=== PATIENT | male | born 1995 | race Caucasian/White ===

== ENCOUNTER 2024-01-19 14:25 | Inpatient (IN) | payer MEDICAID, OTHER ==
[2024-01-19] MEDS: LORazepam 0.5 MG TAB PO STA (15:47)
[2024-01-19] MEDS: LORazepam 2 MG/ML INJ IM STA (15:47)
[2024-01-19] MEDS: HALOPERIDOL LACTATE 5 MG/ML 1 ML VIAL IM STA (16:31)
--- NOTE | 2024-01-19 17:14 | ED ---
General Adult HPI <Marco Garsia - Last Filed: 01/20/24 11:52> - General Source: patient, family, RN notes reviewed, old records reviewed Mode of arrival: ambulatory Limitations: no limitations <Rishi Estrada - Last Filed: 01/21/24 21:12> - General Chief complaint: Psychiatric Symptoms Stated complaint: mental health Time Seen by Provider: 01/19/24 15:07 - History of Present Illness Initial comments: Patient is a 28-year-old male who presents emergency department for psychiatric evaluation. Was brought in by family members. Patient has been more agitated at home with suicidal ideations. Has self harming behavior at home as well. Just prior to arrival, cut himself with an unknown object at home. He is are present on his face, arms, neck, legs. He is 1 gaping 1. Not up-to-date on tetanus. Does endorse homicidal ideations as well as suicidal ideations with an attempt to hurt himself by cutting. Denies any hallucinations. States he has been compliant with medications. Has not seen a therapist or psychiatrist in quite some time. Presents for further evaluation at this time. (Rishi Estrada) - Related Data Home Medications Medication Instructions Recorded Confirmed OLANZapine [ZyPREXA] 2.5 mg PO HS 01/21/24 01/21/24 Allergies Allergy/AdvReac Type Severity Reaction Status Date / Time Penicillins Allergy Anaphylaxis Verified 01/19/24 14:39 Sulfa (Sulfonamide Allergy Anaphylaxis Verified 01/19/24 14:39 Antibiotics) Review of Systems ROS Other: All systems not noted in ROS Statement are negative. <Marco Garsia - Last Filed: 01/20/24 11:52> ROS Other: All systems not noted in ROS Statement are negative. <Rishi Estrada - Last Filed: 01/21/24 21:12> ROS Statement: Those systems with pertinent positive or pertinent negative responses have been documented in the HPI. Review of Systems: CONST: Denies fever EYES: Denies blurry vision ENT: Denies nasal congestion C/V: Denies Chest pain RESP: Denies shortness of breath GI: Denies abdominal pain : Denies dysuria SKIN: Endorses lacerations MSK: Denies joint pain. NEURO: Denies headache (Rishi Estrada) Past Medical History Past Medical History: No Reported History History of Any Multi-Drug Resistant Organisms: None Reported Past Surgical History: No Surgical Hx Reported Past Psychological History: Anxiety, Bipolar, Depression, Schizophrenia Smoking Status: Vaper Past Alcohol Use History: Rare Past Drug Use History: None Reported <Rishi Estrada - Last Filed: 01/21/24 21:12> General Exam Limitations: no limitations <Rishi Estrada - Last Filed: 01/21/24 21:12> - General Exam Comments Initial Comments: General: Appears in no acute distress. HEAD: Normal with no signs of head trauma. EYES: PERRLA, EOMI, conjunctiva normal, no discharge. ENT: Hearing grossly intact, normal oropharynx. RESPIRATORY: Clear breath sounds bilaterally. No wheezes, rales, or rhonchi. C/V: Regular rate and rhythm. S1 and S2 auscultated, no edema, peripheral pulses 2+ and intact throughout ABD: Abd is soft, nontender, nondistended EXT: Normal range of motion, no obvious deformity SKIN: Patient has extensive self-harm lacerations over bilateral anterior forearms, the neck, the face, as well as legs. Only 1 is significantly gaping in the right anterior distal forearm. No active bleeding at this time. NEURO: Alert and oriented x 4. (Rishi Estrada) Course Vital Signs 01/19/24 01/20/24 14:32 06:07 Temperature 98.3 F Pulse Rate 68 98 Respiratory 18 16 Rate Blood Pressure 126/65 130/85 O2 Sat by Pulse 97 98 Oximetry Medical Decision Making <Marco Garsia - Last Filed: 01/20/24 11:52> - Lab Data Result diagrams: 01/21/24 07:26 01/21/24 07:26 <Rishi Estrada - Last Filed: 01/21/24 21:12> - Medical Decision Making Patient evaluated by EPS and will be admitted to this institution for further psychiatric care. (Marco Garsia) Was pt. sent in by a medical professional or institution (, PA, CREDIT ADMINISTRATION MANAGER, urgent care, hospital, or usp...) When possible be specific @ -No Did you speak to anyone other than the patient for history (EMS, parent, family, police, friend...)? What history was obtained from this source @ -Spoke with patient's parents who petitioned the patient. Did you review nursing and triage notes (agree or disagree)? Why? @ -I reviewed and agree with nursing and triage notes Were old charts reviewed (outside hosp., previous admission, EMS record, old EKG, old radiological studies, urgent care reports/EKG's, usp records)? Report findings @ -No old charts were reviewed Differential Diagnosis (chest pain, altered mental status, abdominal pain women, abdominal pain men, vaginal bleeding, weakness, fever, dyspnea, syncope, headache, dizziness, GI bleed, back pain, seizure, CVA, palpatations, mental health, musculoskeletal)? @ -Differential Mental Health Depression, anxiety, bipolar, psychosis, schizophrenia, borderline personality, situational depression, adjustment disorder, behavioral disorder, brain tumor, malingering, substance abuse, encephalopathy, medication reaction, dementia, hypothyroidism, degenerative neurologic disorder, lupus.... This is not meant to be all-inclusive list EKG interpreted by me (3pts min.). @ -None done X-rays interpreted by me (1pt min.). @ -None done CT interpreted by me (1pt min.). @ -None done U/S interpreted by me (1pt. min.). @ -None done What testing was considered but not performed or refused? (CT, X-rays, U/S, lab s)? Why? @ -None What meds were considered but not given or refused? Why? @ -None Did you discuss the management of the patient with other professionals (professionals i.e. , PA, CREDIT ADMINISTRATION MANAGER, lab, RT, psych nurse, director social service, building repair maintenance supervisor, teacher, surveillance dual rate officer, case mgr)? Give summary @ -EPS notified of the consult. Was smoking cessation discussed for >3mins.? @ -No Was critical care preformed (if so, how long)? @ -No Were there social determinants of health that impacted care today? How? (Ho melessness, low income, unemployed, alcoholism, drug addiction, transportation, low edu. Level, literacy, decrease access to med. care, usp, rehab)? @ -No Was there de-escalation of care discussed even if they declined (Discuss DNR or withdrawal of care, Hospice)? DNR status @ -No What co-morbidities impacted this encounter? (DM, HTN, Smoking, COPD, CAD, Cancer, CVA, ARF, Chemo, Hep., AIDS, mental health diagnosis, sleep apnea, morbid obesity)? @ -None Was patient admitted / discharged? Hospital course, mention meds given and route, prescriptions, significant lab abnormalities, going to OR and other pertinent info. @ -Based on the patient's presentation and physical exam, patient presents for psychiatric evaluation. Suicide precautions ordered. Sitter ordered. Patient's arms and wounds were examined and I was assisted by midlevel provider for closure. Please see separate note. Patient given a dose of IM Ativan as well as Haldol due to agitation. BAT is 0. UDS is pending. At this time, patient is medically cleared for evaluation by psychiatry. Disposition pending psychiatric evaluation. EPS notified of the consult. Patient eventually admitted to inpatient psychiatry. Undiagnosed new problem with uncertain prognosis? @ -No Drug Therapy requiring intensive monitoring for toxicity (Heparin, Nitro, Insulin, Cardizem)? @ -No Were any procedures done? @ -No Diagnosis/symptom? @ -Suicidal ideation, self-harm behavior, lacerations, encounter for psychiatric evaluation Acute, or Chronic, or Acute on Chronic? @ -Acute Uncomplicated (without systemic symptoms) or Complicated (systemic symptoms)? @ -Complicated Side effects of treatment? @ -No Exacerbation, Progression, or Severe Exacerbation? @ -No Poses a threat to life or bodily function? How? (Chest pain, USA, [place], pneumonia, PE, COPD, DKA, ARF, appy, cholecystitis, CVA, Diverticulitis, Homicidal, Suicid al, threat to staff... and all critical care pts) @ -Yes (Rishi Estrada) - Lab Data Lab Results 01/19/24 01/20/24 Range/Units 17:10 12:04 Urine Opiates Screen Not Detected (NotDetected) Ur Oxycodone Screen Not Detected (NotDetected) Urine Methadone Screen Not Detected (NotDetected) Ur Barbiturates Screen Not Detected (NotDetected) U Tricyclic Antidepress Not Detected (NotDetected) Ur Phencyclidine Scrn Not Detected (NotDetected) Ur Amphetamines Screen Not Detected (NotDetected) U Methamphetamines Scrn Not Detected (NotDetected) U Benzodiazepines Scrn Not Detected (NotDetected) Urine Cocaine Screen Not Detected (NotDetected) U Marijuana (THC) Screen Detected H (NotDetected) SARS-CoV-2 (PCR) Not Detected (Not Detectd) Disposition Is patient prescribed a controlled substance at d/c from ED?: No Time of Disposition: 11:52 <Marco Garsia - Last Filed: 01/20/24 11:52> <Rishi Estrada - Last Filed: 01/21/24 21:12> Clinical Impression: Suicidal ideations, Self-harming behavior, Laceration, Encounter for psychiatr ic assessment, Acute psychosis Disposition: ADMITTED IP TO THIS HOSP Condition: Stable
[2024-01-19 17:58] LABS: Amphetamine Screen,Urine Not Detected (NotDetected); Barbiturate Screen,Urine Not Detected (NotDetected); Benzodiazepines Screen,Urine Not Detected (NotDetected); Cocaine Screen,Urine Not Detected (NotDetected); Methadone Screen, Urine Not Detected (NotDetected); Opiate Screen,Urine Not Detected (NotDetected); Oxycodone Screen, Urine Not Detected (NotDetected); Phencyclidine Screen,Urine Not Detected (NotDetected); Tricyclic Antidepressant,Urine Not Detected (NotDetected); Urn Cannabinoid Scrn Detected (NotDetected)
[2024-01-19] MEDS: TOPICAL SKIN ADHESIVE 1 EACH AMP TOPICAL ONE (18:45)
[2024-01-19] MEDS: DIPH,PERTUS(ACELL)TETVAC-LF 0.5 ML VIAL IM ONE (18:46)
[2024-01-20] MEDS: SERTRALINE 100 MG TAB PO SCH ×2 (09:23→09:29)
[2024-01-20] MEDS: OLANZapine 2.5 MG TAB PO SCH ×2 (09:30→21:11)
[2024-01-20] MEDS ORDERED: MAGNESIUM HYDROXIDE 2,400 MG/30 ML CUP PO PRN (13:52)
[2024-01-20] MEDS ORDERED: MAG HYDROX/AL HYDROX/SIMETH 355 ML BOTTLE PO PRN (13:52)
[2024-01-20] MEDS ORDERED: ACETAMINOPHEN TAB 325 MG TAB PO PRN (13:52)
[2024-01-20] MEDS ORDERED: HALOPERIDOL LACTATE 5 MG/ML 1 ML VIAL IM PRN (13:56)
[2024-01-20] MEDS ORDERED: LORazepam 2 MG/ML INJ IM PRN (13:56)
[2024-01-20 16:49] LABS: Appearance,Urine Clear (Clear); Bilirubin,Urine Negative (Negative); Blood,Urine Negative (Negative); Color,Urine Colorless; Glucose,Urine (UA) Negative (Negative); Ketones,Urine Negative (Negative); Leukocyte Esterase,Urine Negative (Negative); Nitrite,Urine Negative (Negative); PH, Urine 6.5 (5.0-8.0); Protein,Urine Negative (Negative); Specific Gravity,Urine 1.017 (1.001-1.035); Urobilinogen,Urine <2.0 mg/dL (<2.0)
[2024-01-20] MEDS: LORazepam 1 MG TAB PO PRN (21:11)
--- NOTE | 2024-01-21 00:28 | P.CONS ---
History of Present Illness - Reason for Consult Consult date: 01/21/24 - History of Present Illness Patient is a 28-year-old male with PMH of schizophrenia and bipolar disorder who had presented to the emergency room brought in by family members for psychiatric evaluation. The patient had reportedly been agitated at home and was expressing suicidal ideations. He had also been self harming via cutting himself on his forearms. The patient was admitted to the mental health unit where he was seen and evaluated. Patient reports that he has a longstanding history of depression and self-harm by cutting himself. He reports recreational marijuana use. He denied any physical complaints at the time of interview however. Denied experiencing chest discomfort, shortness of breath, fever, chills, cough, nausea, vomiting, abdominal pain, diarrhea. Review of systems: Pertinent positives and negatives as discussed in HPI, a complete review of systems was performed and all other systems are negative. Physical examination: General: non toxic, no distress, appears at stated age, normal weight Derm: Bilateral superficial lacerations on forearms, no unusual ecchymoses, warm, dry Head: atraumatic, normocephalic, symmetric Eyes: EOMI, no lid lag, anicteric sclera ENT: Nose and ears atraumatic, no thrush, no pharyngeal erythema Neck: trachea midline, supple Mouth: no lip lesion, mucus membranes moist Cardiovascular: S1S2 reg, no murmur, no edema Lungs: CTA bilateral, no rhonchi, no rales , no accessory muscle use Abdominal: soft, nontender to palpation, no guarding Ext: no gross muscle atrophy, no contractures, Neuro: No gross focal neuro deficits noted Psych: Alert, oriented, appropriate affect Assessment: Marijuana abuse Depression and suicidal ideation Imaging: None performed Data Review: Urine toxicology positive for marijuana Plan: Advised on the importance of cessation from marijuana use Defer management of depression and suicidal ideation to the primary psychiatry service Thank you for allowing us to participate in the care of this patient. We will follow peripherally. Do not hesitate to contact us with questions. Someone can be reached from the [facility] hospitalist group at all hours of the day at [phone]. Past Medical History Past Medical History: No Reported History History of Any Multi-Drug Resistant Organisms: None Reported Past Surgical History: No Surgical Hx Reported Past Psychological History: Anxiety, Bipolar, Depression, Schizophrenia Smoking Status: Vaper Past Alcohol Use History: Rare Past Drug Use History: Marijuana Medications and Allergies Allergies Allergy/AdvReac Type Severity Reaction Status Date / Time Penicillins Allergy Anaphylaxis Verified 01/19/24 14:39 Sulfa (Sulfonamide Allergy Anaphylaxis Verified 01/19/24 14:39 Antibiotics) Physical Exam Vitals: Vital Signs Temp Pulse Pulse Resp BP BP Pulse Ox 01/20/24 15:34 97.3 F L 52 L 18 131/82 98 01/20/24 06:07 98 16 130/85 98 Intake and Output 01/20/24 01/20/24 01/21/24 14:59 22:59 06:59 Other: Weight 75.3 kg
[2024-01-21 08:01] LABS: Basophils # (A) 0.1 k/uL (0-0.2); Basophils % (A) 1 %; Eosinophils # (A) 0.4 k/uL (0-0.7); Eosinophils % (A) 7 %; HCT 47.7 % (39.0-53.0); HGB 15.2 gm/dL (13.0-17.5); Lymphocytes # (A) 1.6 k/uL (1.0-4.8); Lymphocytes % (A) 28 %; MCH 29.3 pg (25.0-35.0); MCV 91.8 fL (80.0-100.0); Mean Platelet Volume 7.2; Monocytes # (A) 0.4 k/uL (0-1.0); Monocytes % (A) 6 %; Neutrophils # (A) 3.2 k/uL (1.3-7.7); Neutrophils % (A) 55 %; Platelet Count 206 k/uL (150-450); RBC 5.19 m/uL (4.30-5.90); RDW 12.9 % (11.5-15.5); WBC 5.8 k/uL (3.8-10.6)
[2024-01-21 08:41] LABS: ALT 25 U/L (4-49); AST 33 U/L (17-59); African American GFR (CKD) >90 (>60 ml/min/1.73 sqM); Albumin 4.6 g/dL (3.5-5.0); Alkaline Phosphatase 77 U/L (38-126); Anion Gap 10 mmol/L; Blood Urea Nitrogen 11 mg/dL (9-20); Calcium 9.5 mg/dL (8.4-10.2); Carbon Dioxide 27 mmol/L (22-30); Chloride 104 mmol/L (98-107); Glucose 94 mg/dL (74-99); Non-African American GFR(CKD) >90 (>60 ml/min/1.73 sqM); Potassium 4.2 mmol/L (3.5-5.1); Sodium 141 mmol/L (137-145); Total Bilirubin 0.8 mg/dL (0.2-1.3); Total Protein 7.3 g/dL (6.3-8.2)
[2024-01-21] MEDS: SERTRALINE 100 MG TAB PO SCH (08:50)
--- NOTE | 2024-01-21 12:39 | P.HP ---
Psychiatric H&P - . H&P Date: 01/21/24 History & Physical: Allergies Allergy/AdvReac Type Severity Reaction Status Date / Time Penicillins Allergy Anaphylaxis Verified 01/19/24 14:39 Sulfa (Sulfonamide Allergy Anaphylaxis Verified 01/19/24 14:39 Antibiotics) Vital Signs Temp 97.5 F L 01/21/24 06:42 Pulse 45 L 01/21/24 06:42 Resp 16 01/21/24 06:42 BP 140/77 01/21/24 06:42 Pulse Ox 98 01/20/24 15:34 FiO2 Intake & Output 01/20/24 01/21/24 01/21/24 18:59 06:59 18:59 Weight 75.3 kg Laboratory Last Values WBC 5.8 k/uL (3.8-10.6) 01/21/24 07:26 RBC 5.19 m/uL (4.30-5.90) 01/21/24 07:26 Hgb 15.2 gm/dL (13.0-17.5) 01/21/24 07:26 Hct 47.7 % (39.0-53.0) 01/21/24 07:26 MCV 91.8 fL (80.0-100.0) 01/21/24 07:26 MCH 29.3 pg (25.0-35.0) 01/21/24 07:26 MCHC 32.0 g/dL (31.0-37.0) 01/21/24 07:26 RDW 12.9 % (11.5-15.5) 01/21/24 07:26 Plt Count 206 k/uL (150-450) 01/21/24 07:26 MPV 7.2 01/21/24 07:26 Neutrophils % 55 % 01/21/24 07:26 Lymphocytes % 28 % 01/21/24 07:26 Monocytes % 6 % 01/21/24 07:26 Eosinophils % 7 % 01/21/24 07:26 Basophils % 1 % 01/21/24 07:26 Neutrophils # 3.2 k/uL (1.3-7.7) 01/21/24 07:26 Lymphocytes # 1.6 k/uL (1.0-4.8) 01/21/24 07:26 Monocytes # 0.4 k/uL (0-1.0) 01/21/24 07: Eosinophils # 0.4 k/uL (0-0.7) 01/21/24 07:26 Basophils # 0.1 k/uL (0-0.2) 01/21/24 07:26 Sodium 141 mmol/L (137-145) 01/21/24 07:26 Potassium 4.2 mmol/L (3.5-5.1) 01/21/24 07:26 Chloride 104 mmol/L (98-107) 01/21/24 07:26 Carbon Dioxide 27 mmol/L (22-30) 01/21/24 07:26 Anion Gap 10 mmol/L 01/21/24 07:26 BUN 11 mg/dL (9-20) 01/21/24 07: Creatinine 0.75 mg/dL (0.66-1.25) 01/21/24 07:26 Est GFR (CKD-EPI)AfAm >90 (>60 ml/min/1.73 sqM) 01/21/24 07:26 Est GFR (CKD-EPI)NonAf >90 (>60 ml/min/1.73 sqM) 01/21/24 07:26 Glucose 94 mg/dL (74-99) 01/21/24 07:26 Calcium 9.5 mg/dL (8.4-10.2) 01/21/24 07: Total Bilirubin 0.8 mg/dL (0.2-1.3) 01/21/24 07:26 AST 33 U/L (17-59) 01/21/24 07:26 ALT 25 U/L (4-49) 01/21/24 07:26 Alkaline Phosphatase 77 U/L (38-126) 01/21/24 07:26 Total Protein 7.3 g/dL (6.3-8.2) 01/21/24 07:26 Albumin 4.6 g/dL (3.5-5.0) 01/21/24 07:26 TSH 1.110 mIU/L (0.465-4.680) 01/21/24 07:26 Urine Color Colorless 01/20/24 16:22 Urine Appearance Clear (Clear) 01/20/24 16:22 Urine pH 6.5 (5.0-8.0) 01/20/24 16:22 Ur Specific Helen 1.017 (1.001-1.035) 01/20/24 16:22 Urine Protein Negative (Negative) 01/20/24 16:22 Urine Glucose (UA) Negative (Negative) 01/20/24 16:22 Urine Ketones Negative (Negative) 01/20/24 16:22 Urine Blood Negative (Negative) 01/20/24 16:22 Urine Nitrite Negative (Negative) 01/20/24 16:22 Urine Bilirubin Negative (Negative) 01/20/24 16:22 Urine Urobilinogen <2.0 mg/dL (<2.0) 01/20/24 16:22 Ur Leukocyte Esterase Negative (Negative) 01/20/24 16:22 Urine Opiates Screen Not Detected (NotDetected) 01/19/24 17:10 Ur Oxycodone Screen Not Detected (NotDetected) 01/19/24 17:10 Urine Methadone Screen Not Detected (NotDetected) 01/19/24 17:10 Ur Barbiturates Screen Not Detected (NotDetected) 01/19/24 17:10 U Tricyclic Antidepress Not Detected (NotDetected) 01/19/24 17:10 Ur Phencyclidine Scrn Not Detected (NotDetected) 01/19/24 17:10 Ur Amphetamines Screen Not Detected (NotDetected) 01/19/24 17:10 U Methamphetamines Scrn Not Detected (NotDetected) 01/19/24 17:10 U Benzodiazepines Scrn Not Detected (NotDetected) 01/19/24 17:10 Urine Cocaine Screen Not Detected (NotDetected) 01/19/24 17:10 U Marijuana (THC) Screen Detected (NotDetected) H 01/19/24 17:10 SARS-CoV-2 (PCR) Not Detected (Not Detectd) 01/20/24 12:04 01/21/24 09:22 IDENTIFYING DATA: Patient is a 28-year-old male. Lives in a house with his parents. Patient is single, and has no children. Currently unemployed. HPI: Patient presented to the hospital on 01/19. As per EPS note, "Pt was petitioned by mother, which states, "Marin has repeadtedly stated he wants to kill himself. Saying he leana blow his head off, beat his head on floor and wall. Has cut himself all over body...". During assessment pt was polite, calm, and cooperative with this RN. Pt has cuts on face, eyelids, neck, stomach, bilateral forearms, bilateral thighs, and bilateral feet. Only one cut on right forearm required steri strips, no sutures where placed. All other cuts are superficial. PT states that he took a cutting knife and cut with the intent to bleed. He does not want to life anymore. Admits to with plan to hang or shoot himself. He states that he would go purchase a weapon. He wants IMs to be "sedated so I can't feel and the days just pass". He feels he is a disappointment to his family and self. He states that he wanted to have someone plan to kill him as well. He recently lost his job because he threatened to kill a co-worker. Pt currently has no goals and not future oriented. He denies current HI. Denies delusions. He admits to he states that come and go of what looks like people he used to know. They do not speak to him but just "quick glimpses". 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 He states he feels he was being treated unfairly at work, and it made him angry. He states that he just "blows up" sometimes, and stressors include losing his job, and he was not asking for help. Patient has multiple superficial cuts all over his arms/neck/face. Parents noticed these cuts, and brought him into the hospital. He states he has mood swings, depression, and anxiety. Patient claims that by the cuts, he was wanting to kill himself. States he sleeps well, and his appetite is good. Patient denies any suicidal or homicidal ideations intent or plan. At this time patient denies any auditory or visual hallucinations. However, stated that he would sometimes hear his name being called at work, but no one was around. Patient denies any flight of ideas racing thoughts and increased in goal directed behavior. Patient denies using drugs, kaylynn alatorre, his UDS was positive for marijuana. Nurses and social workers have observed patient responding to internal stimuli, grabbing things in the air, when there is nothing there. PAST PSYCHIATRIC HISTORY: denies. However, states he used to take XANAX. Currently tried taking Zoloft, prescribed by PCP. Tried to hang self in 2018. PMH:As per ER note ALLERGIES: as per EMR CHEMICAL DEPENDENCY HISTORY: as per HPI FAMILY PSYCHIATRIC/SUBSTANCE USE HISTORY: denies SOCIAL HISTORY: Patient was born and raised in [place] [facility] [place] [address], High school graduate. Lives in a house with his parents, currently unemployed. No children. Single. 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 Has had several jobs in the past. Denies legal problems. MENTAL STATUS EXAM: General Appearance: Patient appears to be older than stated age, is alert, directable, and attempts to cooperate. Patient appears to have adequate hygiene and grooming. Superficial cuts all over his arms/neck/face. Patient has side patten, and dressed in street clothes. Behavior: Patient is seated without any agitated behavior. Poor eye contact, fidgety Speech: Patient's speech is fluent and nonpressured. Monotone Mood/Affect: Patient reports their mood is depressed, affect is congruent and constricted. Suicidality/Homicidality: Patient denies having any homicidal ideation intent or plan. Denies any suicidal ideations intent or plan Perceptions: Patient denies any visual hallucinations and denies any auditory hallucinations Though content/process: There is no evidence of any delusional thought content and thought process concrete. Memory and concentration: AOX3, grossly intact for the purposes of this session. Can spell "WORLD" backwards Judgment and insight: poor, impulsive STRENGTHS/WEAKNESSES: strength is that patient is resilient. Weakness is that patient has poor judgment and is impulsive INTELLECT: average IMPRESSIONS: psychosis, unspecified cannabis use disorder PLAN: -Patient is admitted under voluntary status to MHU for stabilization of psychiatric symptoms and safety. Patient has signed adult voluntary form and medication consent and is placed in patient's chart. -Medications : Invega 3mg PO qhs for psychosis, Zoloft 150mg po daily for mood/anxiety -Ativan and Haldol PRN for agitation/aggression -Patient was informed of the risks, benefits and side effects of the medication and patient verbally consented to taking the medications -Internal Medicine consult to perform medical evaluation and physical. -NRT - nonsmoker -SW on board for discharge planning. Encourage patient to participate in groups to work on coping skills.
[2024-01-21] MEDS: PALIPERIDONE 3 MG TAB.ER.24 PO SCH (20:38)
[2024-01-21] MEDS: haloperidoL 5 MG TAB PO PRN (22:06)
[2024-01-22] MEDS: NICOTINE GUM (POLACRILEX) 2 MG GUM BUCCAL PRN (13:44)
--- NOTE | 2024-01-22 13:54 | P.PN ---
Progress Note - Text Progress Note Date: 01/22/24 Interval History: Patient was seen wandering the hallways and was directable and agreeable to bo villareal with grant writer in the office. Patient is apologetic for his behavior yesterday. Stated he had an angry outburst. Claims that he feels better today, however, he is hearing voices, telling him to do things that he shouldn't be doing. Patient states he is feeling SI, however, he is not going to do anything to hurt himself at this time. Patient is going to groups, and trying to work on coping skills. He stated that he is sleeping well at night, and that his appetite is normal. At this time patient denies any suicidal or homicidal ideations, intent or plan. Patient denies any auditory, visual hallucinations and denies any paranoia or delusions. Patient denies any side effects from the medications and has been compliant with meds. MENTAL STATUS EXAM: General Appearance: Patient appears to be older than stated age, is alert, directable, and attempts to cooperate. Patient appears to have adequate hygiene and grooming. Superficial cuts all over his arms/neck/face. Patient has side patten, and dressed in street clothes. Behavior: Patient is seated without any agitated behavior. Poor eye contact, apologetic, improving mildly Speech: Patient's speech is fluent and nonpressured. Monotone, improving mildly Mood/Affect: Patient reports their mood is depressed, affect is congruent and constricted. Suicidality/Homicidality: Patient denies having any homicidal ideation intent or plan. Denies any suicidal ideations intent or plan Perceptions: Patient denies any visual hallucinations and endorses auditory hallucinations Though content/process: There is no evidence of any delusional thought content and thought process concrete. Memory and concentration: AOX3, grossly intact for the purposes of this session. Judgment and insight: poor, impulsive IMPRESSIONS: psychosis, unspecified cannabis use disorder PLAN: -Patient is admitted under voluntary status to MHU for stabilization of psychiatric symptoms and safety. -Medications : increase Invega 6mg PO qhs for psychosis, Zoloft 150mg po daily for mood/anxiety -Ativan and Haldol PRN for agitation/aggression -SW on board for discharge planning. Encourage patient to participate in groups to work on coping skills.
[2024-01-22] MEDS: PALIPERIDONE 6 MG TAB.ER.24 PO SCH (20:59)
--- NOTE | 2024-01-23 08:41 | P.PN ---
Progress Note - Text Progress Note Date: 01/23/24 Interval History: Patient was seen wandering the hallways and was directable and agreeable to bo villareal with report writer in the office. Patient states that he is ok today, and that his mood and anxiety are "pretty good" Patient is going to groups, and trying to work on coping skills. He stated that he is sleeping well at night, and that his appetite is normal. Patient claims that he has been feeling more restless and pacing the hallways more, attributing it to Invega. At this time patient denies any suicidal or homicidal ideations, intent or plan. Patient endorses auditory hallucinations, claims they say "How are you going to act today" and "How are you going to do this and that today", denies visual hallucinations and denies any paranoia or delusions. Student Development Specialist spoke with patient about changing his medication to Geodon, patient agreeable. Will order EKG prior to beginning. MENTAL STATUS EXAM: General Appearance: Patient appears to be older than stated age, is alert, directable, and attempts to cooperate. Patient appears to have adequate hygiene and grooming. Superficial cuts all over his arms/neck/face. Patient has side patten, and dressed in street clothes. Behavior: Patient is seated without any agitated behavior. Poor eye contact, apologetic, improving mildly Speech: Patient's speech is fluent and nonpressured. Monotone, improving mildly Mood/Affect: Patient reports their mood is "ok" affect is congruent and constricted. Suicidality/Homicidality: Patient denies having any homicidal ideation intent or plan. Denies any suicidal ideations intent or plan Perceptions: Patient denies any visual hallucinations and endorses auditory hallucinations Though content/process: There is no evidence of any delusional thought content and thought process concrete. Memory and concentration: AOX3, grossly intact for the purposes of this session. Judgment and insight: poor, impulsive, improving mildly IMPRESSIONS: psychosis, unspecified cannabis use disorder PLAN: -Patient is admitted under voluntary status to [facility] for stabilization of psychiatric symptoms and safety. -Medications : d/c Invega due to restlessness/akithesia, add Geodon 20mg BID for psychosis, Zoloft 150mg po daily for mood/anxiety -Perform EKG today prior to starting Geodon -Ativan and Haldol PRN for agitation/aggression -SW on board for discharge planning. Encourage patient to participate in groups to work on coping skills.
[2024-01-23] MEDS: ZIPRASIDONE 20 MG CAP PO SCH (20:35)
--- NOTE | 2024-01-24 20:48 | P.PN ---
Subjective Progress Note Date: 01/24/24 Patient Name: Marin Fink Date of : 89 Patient Status: Inpatient Attending Provider: Pablo Joaquin Date: 01/24/24 07:02 Initialization Date: 01/23/24 07:02 Progress Note - Text Progress Note Date: 01/24/24 Interval History: The patient was seen chart was reviewed in case discussed with the nursing staff patient reports that he is in the hospital because he tried to cut himself on both of his arms he said that he was angry at his cutting and boning supervisor recently fired him he reports that he was fired because he became agitated and was aggressive and emotionally labile towards them he states that he was living with his family before but is now currently live in a half-way although he states that this was initiated after he behaved aggressively but then reported that he was placed in the hospital before and is placed in a half-way Gen. patient remains uncertain and appears to meet the criteria for [place] average IQ MENTAL STATUS EXAM: General Appearance: Patient appears to be older than stated age, is alert, directable, and attempts to cooperate. Patient appears to have adequate hygiene and grooming. Superficial cuts all over his arms/neck/face. Patient has side patten, and dressed in street clothes. Behavior: Patient is seated without any agitated behavior. Poor eye contact, apologetic, improving mildly Speech: Patient's speech is fluent and nonpressured. Monotone, improving mildly Mood/Affect: Patient reports their mood is "ok" affect is congruent and c onstricted. Suicidality/Homicidality: Patient denies having any homicidal ideation intent or plan. Denies any suicidal ideations intent or plan Perceptions: Patient denies any visual hallucinations and endorses auditory hallucinations Though content/process: There is no evidence of any delusional thought content and thought process concrete. Memory and concentration: AOX3, grossly intact for the purposes of this session. Judgment and insight: poor, impulsive, improving mildly IMPRESSIONS: psychosis, unspecified cannabis use disorder PLAN: Agree with Dr. Schaefer's treatment plan -Patient is admitted under voluntary status to [facility] for stabilization of psychiatric symptoms and safety. -Medications : d/c Invega due to restlessness/akithesia, add Geodon 20mg BID for psychosis, Zoloft 150mg po daily for mood/anxiety -Perform EKG today prior to starting Geodon -Ativan and Haldol PRN for agitation/aggression -SW on board for discharge planning. Encourage patient to participate in groups to work on coping skills. Dorian Stokes MD Objective - Vital Signs Vital signs: Vital Signs Temp 98.1 F 01/24/24 06:00 Pulse 85 01/24/24 06:00 Resp 16 01/24/24 06:00 BP 142/82 01/24/24 06:00 Pulse Ox 99 01/24/24 06:00 FiO2 - Labs CBC & Chem 7: 01/21/24 07:26 01/21/24 07:26
--- NOTE | 2024-01-25 11:01 | P.PN ---
Progress Note - Text Progress Note Date: 01/25/24 Interval History: Patient was seen in his room and was directable and agreeable to speak with wr iter at the bedside. Patient states that he is all right today, and that his mood and anxiety are "pretty good" Patient is going to groups, and trying to work on coping skills. He stated that he is sleeping well at night, and that his appetite is normal. Patient states that the restless feeling he was having is improved, due to the change in medication. At this time patient denies any suicidal or homicidal ideations, intent or plan. Patient is denying auditory hallucinations today, states he hasn't heard them since Sunday, denies visual hallucinations and denies any paranoia or delusions. Patient is compliant with medications, and states he is not having side effects from them. MENTAL STATUS EXAM: General Appearance: Patient appears to be older than stated age, is alert, directable, and attempts to cooperate. Patient appears to have adequate hygiene and grooming. Superficial cuts all over his arms/neck/face. Patient has side patten, and dressed in street clothes. Behavior: Patient is seated without any agitated behavior. improving mildly Speech: Patient's speech is fluent and nonpressured. Monotone, improving mildly Mood/Affect: Patient reports their mood is "all right" affect is congruent and constricted. Suicidality/Homicidality: Patient denies having any homicidal ideation intent or plan. Denies any suicidal ideations intent or plan Perceptions: Patient denies any visual hallucinations and endorses auditory hallucinations Though content/process: There is no evidence of any delusional thought content and thought process concrete. Memory and concentration: AOX3, grossly intact for the purposes of this session. Judgment and insight: poor, improving mildly IMPRESSIONS: psychosis, unspecified cannabis use disorder PLAN: -Patient is admitted under voluntary status to [facility] for stabilization of psychiatric symptoms and safety. -Medications : Geodon 20mg BID for psychosis, maybe increase over the weekend if needed for psychotic symptoms, increase Zoloft 200mg po daily for mood/anxiety, starting tomorrow -Ballroom Dancer reviewed EKG -Ativan and Haldol PRN for agitation/aggression -SW on board for discharge planning. Encourage patient to participate in groups to work on coping skills. Possible discharge early next week if patient continues to improve
[2024-01-26] MEDS: SERTRALINE 100 MG TAB PO SCH (08:30)
--- NOTE | 2024-01-26 12:44 | P.PN ---
Progress Note - Text Progress Note Date: 01/26/24 Interval History: Patient was seen in his room and was directable and agreeable to speak with wr iter at the bedside. He is calm and pleasant and states that he is been doing "good ". he is noted to be reading a Bible and states that his mother brought it for him during visiting hours. Patient is odd in his mannerisms but is able to convey thoughts relatively linearly. He denies auditory hallucinations although he hesitates prior to answering the question. He reports sleeping and eating we ll. He reports that his cuts are healing well and denies concerns. discussed cannabis use and its deleterious effects on mental health. Did motivational interviewing and patient states that he uses cannabis to become more creative and to expand his mind. However, described to him the risks of cannabis use, including worsening psychosis. He denies suicidal ideation and homicidal ideation. He denies visual hallucinations and denies any paranoia or delusions. Patient is compliant with medications, and states he is not having side effects from them. MENTAL STATUS EXAM: General Appearance: Patient appears to be older than stated age, is alert, directable, and attempts to cooperate. Patient appears to have adequate hygiene and grooming. Superficial cuts all over his arms/neck/face. Patient has side patten, and dressed in street clothes. Behavior: Patient is seated without any agitated behavior. improving mildly Speech: Patient's speech is fluent and nonpressured. Monotone, improving mildly Mood/Affect: Patient reports their mood is "good" affect is smiling Suicidality/Homicidality: Patient denies having any homicidal ideation intent or plan. Denies any suicidal ideation intent or plan Perceptions: Patient denies any visual hallucinations and endorses auditory hallucinations Though content/process: There is no evidence of any delusional thought content and thought process concrete. Memory and concentration: AOX3, grossly intact for the purposes of this session. Judgment and insight: poor, improving mildly IMPRESSIONS: psychosis, unspecified cannabis use disorder PLAN: -Patient is admitted under voluntary status to [facility] for stabilization of psychiatric symptoms and safety. -Medications : Geodon 20mg BID with food for psychosis, maybe increase over the weekend if needed for psychotic symptoms, Zoloft 200mg po daily for mood/anxiety -Discussed substance use and encourage sobriety -Ativan and Haldol PRN for agitation/aggression -SW on board for discharge planning. Encourage patient to participate in groups to work on coping skills. Possible discharge early next week if patient continues to improve
--- NOTE | 2024-01-27 10:45 | P.PN ---
Progress Note - Text Progress Note Date: 01/27/24 Interval History: Patient reports her speaking to himself prior to entering the room. When asked about this, patient said he was reading the Bible although the book was closed. He superficially says he is doing "good". However, patient appears to be responding to internal stimuli. He endorses auditory hallucinations telling him "to be happy "and "if I did something wrong, to apologize ". He reports sleeping fairly well and having good appetite. He reports tolerating the medications well and does not appear to have any tremors or restlessness. He was agreeable with increasing Geodon today. He denies suicidal ideation and homicidal ideation. He denies visual hallucinations and denies any paranoia or delusions. Patient is compliant with medications, and states he is not having side effects from them. Vital Signs Temp 97.8 F 01/25/24 07:48 Pulse 68 01/26/24 06:55 Resp 18 01/26/24 06:55 BP 136/82 01/26/24 06:55 Pulse Ox 97 01/25/24 07:48 FiO2 MENTAL STATUS EXAM: General Appearance: Patient appears to be older than stated age, is alert, di rectable, and attempts to cooperate. Patient appears to have adequate hygiene and grooming. Superficial cuts all over his arms/neck/face. Patient has side patten, and dressed in street clothes. No tremors Behavior: Patient is seated without any agitated behavior. improving mildly Speech: Patient's speech is fluent and nonpressured. Monotone, improving mildly Mood/Affect: Patient reports their mood is "good" affect is smiling Suicidality/Homicidality: Patient denies having any homicidal ideation intent or plan. Denies any suicidal ideation intent or plan Perceptions: Patient denies any visual hallucinations and endorses auditory hallucinations Though content/process: There is no evidence of any delusional thought content and thought process concrete. Memory and concentration: AOX3, grossly intact for the purposes of this session. Judgment and insight: poor, improving mildly IMPRESSIONS: psychosis, unspecified cannabis use disorder PLAN: -Patient is admitted under voluntary status to [facility] for stabilization of psychiatric symptoms and safety. -Medications : increase Geodon to 40mg BID with food for psychosis, Zoloft 200mg po daily for mood/anxiety -QTc was 362 (baseline) -Discussed cannabis use, discussed deleterious effects on mental health and encourage sobriety -Ativan and Haldol PRN for agitation/aggression -SW on board for discharge planning. Encourage patient to participate in groups to work on coping skills. Possible discharge early next week if patient continues to improve
[2024-01-27] MEDS: ZIPRASIDONE 40 MG CAP PO SCH (20:51)
--- NOTE | 2024-01-28 11:07 | P.PN ---
Progress Note - Text Progress Note Date: 01/28/24 Interval History: Patient was seen in his room and was directable and agreeable to speak with wr iter at the bedside. Patient states that he is ok today, and that his mood and anxiety are "good" Patient is going to some groups. He stated that he is sleeping well at night, and that his appetite is normal. Nursing staff reports patient responding to internal stimuli, talking to the cameras on the unit, and having conversations with himself. Patient is focused on discharge, wanting to leave today. very concrete, demanding. poor insight/judgment Automotive Engineering Technician explained to patient that his medications needed adjusted a little more before that can happen. At this time patient denies any suicidal or homicidal ideations, intent or plan. Patient is denying auditory hallucinations today, denies visual hallucinations and denies any paranoia or delusions. Patient is compliant with medications, and states he is not having side effects from them. MENTAL STATUS EXAM: General Appearance: Patient appears to be older than stated age, is alert, directable, and attempts to cooperate. Patient appears to have adequate hygiene and grooming. Superficial cuts all over his arms/neck/face. Patient has side patten, and dressed in street clothes. Behavior: Patient is seated without any agitated behavior. improving mildly Speech: Patient's speech is fluent and nonpressured. Monotone, improving mildly Mood/Affect: Patient reports their mood is "good" affect is congruent and constricted. Suicidality/Homicidality: Patient denies having any homicidal ideation intent or plan. Denies any suicidal ideations intent or plan Perceptions: Patient denies any visual hallucinations and denies auditory hallucinations Though content/process: There is no evidence of any delusional thought content and thought process concrete. Memory and concentration: AOX3, grossly intact for the purposes of this session. Judgment and insight: poor, improving mildly IMPRESSIONS: psychosis, unspecified cannabis use disorder PLAN: -Patient is admitted under voluntary status to [facility] for stabilization of psychiatric symptoms and safety. -Medications : increase Geodon 60mg BID for psychosis, starting tomorrow, Zoloft 200mg po daily for mood/anxiety. Ordered EKG -Ativan and Haldol PRN for agitation/aggression -SW on board for discharge planning. Encourage patient to participate in groups to work on coping skills. Possible discharge later this week if patient improves psychiatrically.
[2024-01-28] MEDS: ZIPRASIDONE 40 MG CAP PO ONE (20:29)
[2024-01-29] MEDS: ZIPRASIDONE 60 MG CAP PO SCH (08:28)
--- NOTE | 2024-01-29 11:07 | P.PN ---
Progress Note - Text Progress Note Date: 01/29/24 Interval History: Patient was seen in his room and was directable and agreeable to speak with wr iter at the bedside. Patient claims that he is doing ok today. When account underwriter asked about him hitting his head on his room door yesterday, patient stated he was sad that he did not get discharged yesterday, and he wanted to go to dinner with his parents. Patient received as needed medications after he impulsively hit his head against the door. Nursing staff is still observing patient doing bizarre things, like showing his bible to the cameras on the unit, and having conversations with himself. These to be fairly superficial with account underwriter. Patient denies these behaviors. Chiller Tender spoke with patient about coping skills, and safe discharge. At this time patient denies any suicidal or homicidal ideations, intent or plan. Patient is denying auditory hallucinations today, denies visual hallucinations and denies any paranoia or delusions. Patient is compliant with medications, and states he is not having side effects from them. MENTAL STATUS EXAM: General Appearance: Patient appears to be older than stated age, is alert, directable, and attempts to cooperate. Patient appears to have adequate hygiene and grooming. Superficial cuts all over his arms/neck/face. Patient has side patten, and dressed in street clothes. Behavior: Patient is seated without any agitated behavior. improving mildly Speech: Patient's speech is fluent and nonpressured. Monotone, improving mildly Mood/Affect: Patient reports their mood is "good" affect is congruent and constricted. Suicidality/Homicidality: Patient denies having any homicidal ideation intent or plan. Denies any suicidal ideations intent or plan Perceptions: Patient denies any visual hallucinations and denies auditory hallucinations Though content/process: There is no evidence of any delusional thought content and thought process concrete. Memory and concentration: AOX3, grossly intact for the purposes of this session. Judgment and insight: poor, improving mildly IMPRESSIONS: psychosis, unspecified, likely schizophrenia versus schizoaffective disorder cannabis use disorder PLAN: -Patient is admitted under voluntary status to [facility] for stabilization of psychiatric symptoms and safety. -Medications : discontinue Geodon , Zoloft 200mg po daily for mood/anxiety. add Prolixin 2.5mg bid for psychosis -EKG reviewed -Ativan and Haldol PRN for agitation/aggression -SW on board for discharge planning. Encourage patient to participate in groups to work on coping skills. Possible discharge later this week if patient improves psychiatrically.
[2024-01-30] MEDS: BENZTROPINE MESYLATE 0.5 MG TAB PO SCH (11:01)
--- NOTE | 2024-01-30 11:08 | P.PN ---
Progress Note - Text Progress Note Date: 01/30/24 Interval History: Patient was seen in his room and was directable and agreeable to speak with wr iter at the bedside. Patient claims that he is doing ok today. He continues to be fairly superficial with scenario writer. He states he was having "leg convulsions" last night, and increased anxiety, so he needed to take PRN's. Patient seemed guarded and vague when trying to explain his mood. Patient continues to be agitated at nighttime and in the evening as well. He was fairly superficial, continues to have fairly limited insight and judgment. Glove Pairer spoke with patient about dialing in the medications, so he can have a safe discharge back to home. Patient agreeable. Per nursing notes, patient observed being loud in his room around 1am, responding to internal stimuli. At this time patient denies any suicidal or homicidal ideations, intent or plan. Patient is denying auditory hallucinations today, denies visual hallucinations and denies any paranoia or delusions. Patient is compliant with medications. MENTAL STATUS EXAM: General Appearance: Patient appears to be older than stated age, is alert, directable, and attempts to cooperate. Patient appears to have adequate hygiene and grooming. Superficial cuts all over his arms/neck/face. Patient has side patten, and dressed in street clothes. Behavior: Patient is seated without any agitated behavior. improving mildly Speech: Patient's speech is fluent and nonpressured. Monotone, improving mildly Mood/Affect: Patient reports their mood is "good" affect is congruent and constricted. Suicidality/Homicidality: Patient denies having any homicidal ideation intent or plan. Denies any suicidal ideations intent or plan Perceptions: Patient denies any visual hallucinations and denies auditory hallucinations Though content/process: There is no evidence of any delusional thought content and thought process concrete. Memory and concentration: AOX3, grossly intact for the purposes of this session. Judgment and insight: Chronically poor, improving mildly IMPRESSIONS: psychosis, unspecified, likely schizophrenia versus schizoaffective disorder cannabis use disorder Extrapyramidal symptoms PLAN: -Patient is admitted under voluntary status to [facility] for stabilization of psychiatric symptoms and safety. -Medications : Zoloft 200mg po daily for mood/anxiety. increase Prolixin 5mg qhs for psychosis add Prolixin 2mg daily, Cogentin 0.5 bid for EPS symptoms, add trazodone 50mg qhs for sleep -Ativan and Haldol PRN for agitation/aggression -SW on board for discharge planning. Encourage patient to participate in groups to work on coping skills. Possible discharge later this week if patient improves psychiatrically.
[2024-01-30] MEDS: traZODone HCL 50 MG TAB PO SCH (20:31)
--- NOTE | 2024-01-31 11:24 | P.PN ---
Progress Note - Text Progress Note Date: 01/31/24 Interval History: Patient was seen in his room and was directable and agreeable to speak with wr iter at the bedside. Patient claims that he is doing ok today. He continues to be superficial with technical proposal writer. He states the "leg convulsions" he was having yesterday have subsided. Patient denies any anxiety and problems with his mood, however, he repeatedly requires PRN's for outbursts he has on the unit. Patient continues to display times of agitation and responding to internal stimuli talking to himself. He continues to be seen wandering the halls of the hallways with a Bible. Patient seemed guarded and vague when trying to explain his mood. Patient states he slept well last night, as per nursing notes, he only slept a few hours, then was up, and talking loudly to himself, appearing to be responding to internal stimuli, and requiring PRN's. Continues to have limited insight and judgment. Patient is not showering, technical proposal writer encouraged him to do so. Patient states he talks to his mom on the phone. Per nursing notes, mother called the unit stating that the patient was upset because he wants to be discharged. At this time patient denies any suicidal or homicidal ideations, intent or plan. Patient is denying auditory hallucinations today, denies visual hallucinations and denies any paranoia or delusions. Patient is compliant with medications. MENTAL STATUS EXAM: General Appearance: Patient appears to be older than stated age, is alert, directable, and attempts to cooperate. Patient appears to have poor hygiene and grooming. Superficial cuts all over his arms/neck/face. Patient has side patten, and dressed in street clothes. Behavior: Patient is seated without any agitated behavior. improving mildly Superficial. Evasive Speech: Patient's speech is fluent and nonpressured. Monotone, improving mildly Mood/Affect: Patient reports their mood is "ok" affect is congruent and con stricted. Suicidality/Homicidality: Patient denies having any homicidal ideation intent or plan. Denies any suicidal ideations intent or plan Perceptions: Patient denies any visual hallucinations and denies auditory hallucinations Though content/process: There is no evidence of any delusional thought content and thought process concrete. Memory and concentration: AOX3, grossly intact for the purposes of this session. Judgment and insight: Chronically poor IMPRESSIONS: psychosis, unspecified, likely schizophrenia versus schizoaffective disorder cannabis use disorder Extrapyramidal symptoms PLAN: -Patient is admitted under voluntary status to MHU for stabilization of psychiatric symptoms and safety. -Medications : Zoloft 200mg po daily for mood/anxiety. increase Prolixin 7.5mg qhs for psychosis, Prolixin 2mg daily, Cogentin 0.5 bid for EPS symptoms, increase trazodone 100mg qhs for sleep, add depakote 250mg bid for mood stabilization/agitation -Ativan and Haldol PRN for agitation/aggression -SW on board for discharge planning. Encourage patient to participate in groups to work on coping skills. Will await for patient to improve psychiatrically before discharge home.
[2024-01-31] MEDS: DIVALPROEX ER 250 MG TAB.ER.24H PO SCH (11:46)
[2024-01-31] MEDS: NICOTINE 14MG/24HR PATCH TRANSDERM SCH (11:48)
[2024-01-31] MEDS: traZODone HCL 100 MG TAB PO SCH (21:39)
--- NOTE | 2024-02-01 10:19 | P.PN ---
Progress Note - Text Progress Note Date: 02/01/24 Interval History: Patient was seen in his room and was directable and agreeable to speak with wr iter at the bedside. Patient claims that he is doing ok today. Patient did admit to having quite a bit of anxiety, due to wanting to be discharged. Patient is requiring multiple PRN's due to increased anxiety, and behaviors. Patient is superficial with entry writer, as well as vague. Patient states he sleeps at night, as per nursing notes, patient sleeps very little, and is up in the lounge at night. When approached, patient states that he hears the TV talking to him, however, the TV was not on at the time. It was reported by Activity Therapist, that patient stated he is having thoughts of self harm, and that he does have new scratches on his face. [employer]maker [employer] reiterated to the patient that his mental health is important, and we can not safely discharge him at this time. Patient offered no complaints. At this time patient denies any suicidal or homicidal ideations, intent or plan. Patient is endorsing auditory hallucinations today, denies visual hallucinations and denies any paranoia or delusions. Patient is compliant with medications. MENTAL STATUS EXAM: General Appearance: Patient appears to be older than stated age, is alert, directable, and attempts to cooperate. Patient appears to have poor hygiene and grooming. Superficial cuts all over his arms/neck/face. Patient has side patten, and dressed in street clothes. Behavior: Patient is seated without any agitated behavior. Superficial. Evasive, improving mildly Speech: Patient's speech is fluent and nonpressured. Monotone Mood/Affect: Patient reports their mood is "ok" affect is congruent and constricted. Suicidality/Homicidality: Patient denies having any homicidal ideation intent or plan. Denies any suicidal ideations intent or plan Perceptions: Patient denies any visual hallucinations and is endorsing auditory hallucinations. Focused on discharge. Though content/process: There is evidence of any delusional thought content and thought process concrete. Patient feels the TV is talking to him. Memory and concentration: AOX3, grossly intact for the purposes of this session. Judgment and insight: Chronically poor IMPRESSIONS: psychosis, unspecified, likely schizophrenia versus schizoaffective disorder cannabis use disorder Extrapyramidal symptoms PLAN: -Patient is admitted under voluntary status to MHU for stabilization of psychiatric symptoms and safety. -Medications : Zoloft 200mg po daily for mood/anxiety. discontinue Prolixin add Zyprexa 5mg BID for psychosis, discontinue Cogentin , decrease trazodone 50mg qhs PRN for sleep, increase depakote 750mg qhs for mood stabilization/agitation -Ativan and Haldol PRN for agitation/aggression -SW on board for discharge planning. Encourage patient to participate in groups to work on coping skills. Will await for patient to improve psychiatrically before discharge home.
[2024-02-01 11:32] VITALS: BMI 22.8
[2024-02-01] MEDS: OLANZapine 5 MG TAB PO SCH (12:03)
[2024-02-01] MEDS: DIVALPROEX ER 250 MG TAB.ER.24H PO SCH (20:36)
--- NOTE | 2024-02-02 11:42 | P.PN ---
Progress Note - Text Progress Note Date: 02/02/24 Interval history: Patient was seen wandering the hallways and was directable and agreeable to s peak with automotive service writer. Patient was also noted to be going to group today. He claims that he slept about 6 hours last night. He did have minor scratches over his face and states that he does not know how that got there. He claims that he feels the medications have been helping a bit better, he appears to be less irritable today, did not have to take extra as needed medication. He states that he is doing a bit better overall, denies any depression or anxiety at this time. Continues to focus on discharge, mildly improving insight and judgment. At this time patient denies any suicidal or homicidal ideations intent or plan. Denies any Auditory or visual hallucinations. Patient denies any side effects from the medications and has been compliant with meds. Mental status exam: General Appearance: Patient appears to be thin, stated age is alert, directable, and cooperative. Behavior: No agitated behavior. Patient is calm and directable more cooperative today. Speech: Patient's speech is fluent and nonpressured. Monotone Mood/Affect: Mood is improving mildly, affect is congruent and constricted. Suicidality/Homicidality: Patient denies having any suicidal or homicidal ideation intent or plan. Perceptions: Patient denies any auditory or visual hallucinations. Though content/process: There is no evidence of any delusional thought content and thought process is linear and goal-directed. M[place], guarded Memory and concentration: AOX3, grossly intact for the purposes of this session Judgment and insight: Chronically poor, improving mildly Assessment/Plan: Continue with current diagnosis. Patient continues to meet criteria for inpatient psychiatric admission for symptom stabilization and safety. Patient will be maintained on current psychotropic medication regimen, with the exception of increasing Zyprexa to 10 mg nightly +5 mg daily for mood stabilization/psychosis. Increase Depakote to 1000 mg nightly for mood stabilization. Monitor for medication compliance and for any psychotropic medication side effects. Will continue to monitor ongoing response to treatment. Encouraged participation in milieu.
[2024-02-02] MEDS: DIVALPROEX ER 500 MG TAB.ER.24H PO SCH (20:38)
[2024-02-02] MEDS: OLANZapine 10 MG TAB PO SCH (20:38)
[2024-02-03] MEDS: OLANZapine 5 MG TAB PO SCH ×2 (07:21→20:46)
--- NOTE | 2024-02-03 10:43 | P.PN ---
Progress Note - Text Progress Note Date: 02/03/24 Interval history: Patient was seen wandering the hallways and was directable and agreeable to s peak with proposal writer.. He appears to be more directable today during conversation. He was seen plugging his ears while he was wandering the hallway and claims that "the voices were telling me to not disturb your conversation". He claims that he is doing better today overall, denies any depression or anxiety. Less irritable, not having any episodes of agitation. Continues to be fairly concrete, insight and judgment mildly improving however remains chronically poor. He claims that he slept about 6 hours last night. At this time patient denies any suicidal or homicidal ideations intent or plan. Denies any Auditory or visual hallucinations. Patient denies any side effects from the medications and has been compliant with meds. Mental status exam: General Appearance: Patient appears to be thin, stated age is alert, directable, and attempts to be cooperative. Behavior: No agitated behavior. Patient is calm and directable more cooperative today. Speech: Patient's speech is fluent and nonpressured. Monotone Mood/Affect: Mood is improving mildly, affect is congruent and brighter affect today. Suicidality/Homicidality: Patient denies having any suicidal or homicidal ideation intent or plan. Perceptions: Patient denies any auditory or visual hallucinations. Though content/process: There is no evidence of any delusional thought content and thought process is linear and goal-directed. [place], guarded, improving mildly Memory and concentration: AOX3, grossly intact for the purposes of this session Judgment and insight: Chronically poor, improving mildly Assessment/Plan: Continue with current diagnosis. Patient continues to meet criteria for inpatient psychiatric admission for symptom stabilization and safety. Patient will be maintained on current psychotropic medication regimen, with the exception of increasing Zyprexa to 15 mg nightly +5 mg daily for mood stabilization/psychosis. Depakote 1000 mg nightly for mood stabilization. Monitor for medication compliance and for any psychotropic medication side effects. Will continue to monitor ongoing response to treatment. Encouraged participation in milieu. hopeful for discharge sun vs if patient continues to improve.
--- NOTE | 2024-02-04 12:29 | P.PN ---
Progress Note - Text Progress Note Date: 02/04/24 Interval History: [place] [facility] [place] direct[place] and agreeable to speak with ghost writer. Patient was reading out loud his Bible in the [facility] and did not want to leave the [facility]. Patient claims that he is doing ok today. Patient was calmly seated reading the bible. Patient stated that his mom came and visited over the weekend. Patient offered no complaints. Patient is still observed by nursing staff responding to internal stimuli. Will have social work reach out to his mother, to come up with a discharge plan. Patient reports a good appetite, and states he is sleeping well. He is to be fairly concrete, continues to have very limited insight and judgment. He has been taking his medications not reporting any problems. At this time patient denies any suicidal or homicidal ideations, intent or plan. Patient is denying auditory hallucinations today, denies visual hallucinations and denies any paranoia or delusions. Patient is compliant with medications. MENTAL STATUS EXAM: General Appearance: Patient appears to be older than stated age, is alert, directable, and attempts to cooperate. Patient appears to have improving hygiene and grooming. healed cuts all over his arms/neck/face. Patient has side patten, and dressed in street clothes. Behavior: Patient is seated without any agitated behavior. Superficial. Evasive, improving mildly Speech: Patient's speech is fluent and nonpressured. Monotone improving mildly Mood/Affect: Patient reports their mood is "ok" affect is congruent and constricted. Suicidality/Homicidality: Patient denies having any homicidal ideation intent or plan. Denies any suicidal ideations intent or plan Perceptions: Patient denies any visual hallucinations and is denying auditory hallucinations. Though content/process: There is evidence of any delusional thought content and thought process concrete. Observed by nursing staff responding to internal stimuli. Superficial/vague Memory and concentration: AOX3, grossly intact for the purposes of this session. Judgment and insight: Chronically poor IMPRESSIONS: psychosis, unspecified, likely schizophrenia versus schizoaffective disorder cannabis use disorder Extrapyramidal symptoms PLAN: -Patient is admitted under voluntary status to MHU for stabilization of psychiat norman symptoms and safety. -Medications : Zoloft 200mg po daily for mood/anxiety. discontinue Zyprexa, trazodone 50mg qhs PRN for sleep, depakote 1000mg qhs for mood stabilization/agitation Add Haldol 5mg BID for psychosis -Ativan and Haldol PRN for agitation/aggression -SW on board for discharge planning. Encourage patient to participate in groups to work on coping skills. Will await for patient to improve psychiatrically before discharge home.
[2024-02-04] MEDS: haloperidoL 5 MG TAB PO SCH (14:10)
--- NOTE | 2024-02-05 11:43 | P.PN ---
Progress Note - Text Progress Note Date: 02/05/24 Interval History: Patient was seen in the l activity room today, working on a puzzle. He was ag reeable to speak to marketing writer today. He appears to have a mildly improving affect today. Denies any complaints. States that he likes taking the haloperidol better than the previous medications. He claims that he is trying to go to more groups and participate as best as he can. He continues to be mildly religiously preoccupied. He is not observed to be responding to internal stimuli today. Claims that he slept about 5 hours last night. Claims to be eating fairly. He has been taking his medications not reporting any problems. We spoke about transitioning patient onto long-acting injection and he states that he is okay with that. At this time patient denies any suicidal or homicidal ideations, intent or plan. Patient is denying auditory hallucinations today, denies visual hallucinations and denies any paranoia or delusions. Patient is compliant with medications. MENTAL STATUS EXAM: General Appearance: Patient appears to be older than stated age, is alert, directable, and attempts to cooperate. Patient appears to have improving hygiene and grooming. healed cuts all over his arms/neck/face. Patient has side patten, and dressed in street clothes. Behavior: Patient is seated without any agitated behavior. Superficial. improving mildly Speech: Patient's speech is fluent and nonpressured. improving mildly Mood/Affect: Patient reports their mood is "all right" affect is congruent and constricted. Improving mildly Suicidality/Homicidality: Patient denies having any homicidal ideation intent or plan. Denies any suicidal ideations intent or plan Perceptions: Patient denies any visual hallucinations and is denying auditory hallucinations. Though content/process: There is evidence of any delusional thought content and thought process concrete. Memory and concentration: AOX3, grossly intact for the purposes of this session. Judgment and insight: Chronically poor, improving mildly IMPRESSIONS: Schizophrenia cannabis use disorder Extrapyramidal symptoms PLAN: -Patient is admitted under voluntary status to MHU for stabilization of psychiatric symptoms and safety. -Medications : Zoloft 200mg po daily for mood/anxiety, trazodone 50mg qhs PRN for sleep, depakote 1000mg qhs for mood stabilization/agitation, increase Haldol 5mg TID for psychosis, plan will be to transition patient onto long-acting injection to help ensure compliance. -Ativan and Haldol PRN for agitation/aggression -SW on board for discharge planning. Encourage patient to participate in groups to work on coping skills. Will await for patient to improve psychiatrically before discharge home. Patient is agreeable to be transitioned onto long-acting injection.
[2024-02-05] MEDS: BENZTROPINE MESYLATE 1 MG TAB PO SCH (21:14)
--- NOTE | 2024-02-06 11:30 | P.PN ---
Progress Note - Text Progress Note Date: 02/06/24 Interval History: Patient was seen today again and he was working on a puzzle alone in the [employer] room. He was agreeable to speak to proposal lead writer today. Patient claims that he felt agitated and irritable yesterday at nighttime. Claims that he was "missing home". States that he is not having any significant complaints at this time. He did request to have Ensure added to his meals. He again has been noted by some staff to be responding to internal stimuli at times in the hallways. He is not observed to be responding to internal stimuli today at this moment. Claims that he slept about 5 hours last night. Claims to be eating fairly. Not endorsing any issues with his medications. We spoke about transitioning patient onto long-acting injection and he states that he is okay with that. At this time patient denies any suicidal or homicidal ideations, intent or plan. Patient is denying auditory hallucinations today, denies visual hallucinations and denies any paranoia or delusions. Patient is compliant with medications. MENTAL STATUS EXAM: General Appearance: Patient appears to be older than stated age, is alert, directable, and attempts to cooperate. Patient appears to have improving hygiene and grooming. healed cuts all over his arms/neck/face. Patient has side patten, and dressed in street clothes. Behavior: Patient is seated without any agitated behavior. improving mildly Speech: Patient's speech is fluent and nonpressured. improving mildly Mood/Affect: Patient reports their mood is "ok" affect is congruent and constricted. Improving mildly Suicidality/Homicidality: Patient denies having any homicidal ideation intent or plan. Denies any suicidal ideations intent or plan Perceptions: Patient denies any visual hallucinations and is denying auditory hallucinations. Though content/process: There is evidence of any delusional thought content and thought process concrete. Improving mildly Memory and concentration: AOX3, grossly intact for the purposes of this session. Judgment and insight: Chronically poor, improving mildly IMPRESSIONS: Schizophrenia cannabis use disorder Extrapyramidal symptoms PLAN: -Patient is admitted under voluntary status to MHU for stabilization of psychiatric symptoms and safety. -Medications : Zoloft 200mg po daily for mood/anxiety, trazodone 50mg qhs PRN for sleep, depakote 1000mg qhs for mood stabilization/agitation, increase Haldol 5mg TID for psychosis, plan will be to transition patient onto long-acting injection to help ensure compliance. -Ativan and Haldol PRN for agitation/aggression -SW on board for discharge planning. Encourage patient to participate in groups to work on coping skills. Will await for patient to improve psychiatrically before discharge home. Patient is agreeable to be transitioned onto long-acting injection. likely discharge early next week once patient is transitioned onto RINCON and psychotic sx improving.
[2024-02-06] MEDS: haloperidoL 5 MG TAB PO SCH (16:15)
[2024-02-06] MEDS: traZODone HCL 50 MG TAB PO PRN (20:40)
--- NOTE | 2024-02-07 08:02 | P.PN ---
Progress Note - Text Progress Note Date: 02/07/24 Interval History: Patient was seen today in his room and was agreeable to speak to remote mortgage underwriter today. Patient claims that he is doing fairly well, denying any side effects at this time. He states that he slept fairly last night, he did need a dose of Ativan yesterday due to anxiety. He claims that he is tolerating medications fairly well. His thought process seems to be improving, he is not responding to internal stimuli at this time. Claims that he is eating well, trying to go to some groups, was requesting to have glasses to help him read. We spoke about transitioning patient onto long-acting injection and he states that he is okay with that. At this time patient denies any suicidal or homicidal ideations, intent or plan. Patient is denying auditory hallucinations today, denies visual hallucinations and denies any paranoia or delusions. Patient is compliant with medications. MENTAL STATUS EXAM: General Appearance: Patient appears to be older than stated age, is alert, directable, and attempts to cooperate. Patient appears to have improving hygiene and grooming. healed cuts all over his arms/neck/face. Patient has side patten, and dressed in street clothes. Behavior: Patient is seated without any agitated behavior. improving mildly Speech: Patient's speech is fluent and nonpressured. improving mildly Mood/Affect: Patient reports their mood is "fine" affect is congruent and constricted. Improving mildly Suicidality/Homicidality: Patient denies having any homicidal ideation intent or plan. Denies any suicidal ideations intent or plan Perceptions: Patient denies any visual hallucinations and is denying auditory hallucinations. Though content/process: There is evidence of any delusional thought content and thought process concrete. Improving mildly Memory and concentration: AOX3, grossly intact for the purposes of this session. Judgment and insight: Chronically poor, improving mildly IMPRESSIONS: Schizophrenia cannabis use disorder Extrapyramidal symptoms PLAN: -Patient is admitted under voluntary status to MHU for stabilization of psychiatric symptoms and safety. -Medications : Zoloft 200mg po daily for mood/anxiety, trazodone 50mg qhs PRN for sleep, depakote 1000mg qhs for mood stabilization/agitation, Haldol 5mg TID for psychosis, plan will be to transition patient onto long-acting injection to help ensure compliance. Please assess to give patient Haldol D RINCON either tomorrow or the weekend and began to titrate off Haldol po in preparation of discharge early next week. -Ativan and Haldol PRN for agitation/aggression -SW on board for discharge planning. Encourage patient to participate in groups to work on coping skills. Will await for patient to improve psychiatrically before discharge home. Patient is agreeable to be transitioned onto long-acting injection. likely discharge early next week once patient is transitioned onto [place] I and psychotic sx improving.
--- NOTE | 2024-02-08 18:28 | P.PN ---
Progress Note - Text Progress Note Date: 02/08/24 Interval history: Patient was seen wandering the hallways and was directable and agreeable to speak with medical writer. He is calm and attempts to cooperate. He states his mood is "5/10". He reports fair sleep and good appetite. He spends his day drawing and writing. His social interactions are somewhat odd and have made a peer feel uncomfortable. He read a female peer's journal that she accidentally left unattended. He then wrote her a few notes that were meant to be encouraging but made the peer feel uncomfortable. This was discussed with nurse today and patient was educated to not write notes to the patient and he understood. At this time patient denies any suicidal or homicidal ideation, intent or plan. Denies any auditory or visual hallucinations. Patient denies any side effects from the medications and has been compliant with meds. We discussed the Haldol decanoate injection and he agrees. Mental status exam: General Appearance: Patient appears to be stated age, facial hair, fair hygiene and grooming Behavior: No agitated behavior. Patient is calm and directable. Odd at times. Speech: Patient's speech is fluent and non-pressured. Mood/Affect: Mood is improving mildly, affect is congruent and constricted. Suicidality/Homicidality: Patient denies having any suicidal or homicidal ideation intent or plan. Perceptions: Patient denies any auditory or visual hallucinations. Though content/process: There is no evidence of any delusional thought content and thought process is linear and goal-directed. Memory and concentration: AOX3, grossly intact for the purposes of this session Judgment and insight: Improving mildly Assessment/Plan: Continue with current diagnosis. Patient continues to meet criteria for inpatient psychiatric admission for symptom stabilization and safety. Start Haldol decanoate 100 mg IM q4 weeks. Monitor for medication compliance and for any psychotropic medication side effects. Will continue to monitor ongoing response to treatment. Encouraged participation in milieu.
[2024-02-08] MEDS: HALOPERIDOL DECANOATE 100 MG/ML 1 ML VIAL IM SCH (18:49)
[2024-02-09 21:23] VITALS: RESP 16
--- NOTE | 2024-02-10 20:23 | P.PN ---
Progress Note - Text Progress Note Date: 02/09/24 Interval history: Patient was seen resting in bed. He appears withdrawn, keeps to himself. He reports mood is ok, denies depressed mood. He slept well last night. He reports good appetite. He is disheveled and malodorous, has not been showering, his room has a strong odor. At this time patient denies any suicidal or homicidal ideation, intent or plan. Denies any auditory or visual hallucinations. Patient denies any side effects from the medications and has been compliant with meds. He received Haldol decanoate 100 mg IM x 1 last night. Mental status exam: General Appearance: Patient appears to be stated age, facial hair, malodorous Behavior: No agitated behavior. Patient is calm, withdrawn. Speech: Patient's speech is fluent and non-pressured. Mood/Affect: Mood is improving mildly, affect is congruent and constricted. Suicidality/Homicidality: Patient denies having any suicidal or homicidal ideation intent or plan. Perceptions: Patient denies any auditory or visual hallucinations. Though content/process: There is no evidence of any delusional thought content and thought process is linear and goal-directed. Memory and concentration: AOX3, grossly intact for the purposes of this session Judgment and insight: Improving mildly Assessment/Plan: Continue with current diagnosis. Patient continues to meet criteria for inpatient psychiatric admission for symptom stabilization and safety. First dose of Haldol decanoate 100 mg IM q4 weeks given on 02/08/24. Will continue patient on current medication doses. Monitor for medication compliance and for any psychotropic medication side effects. Will continue to monitor ongoing response to treatment. Encouraged participation in milieu.
--- NOTE | 2024-02-10 20:38 | P.PN ---
Progress Note - Text Progress Note Date: 02/10/24 Interval history: Patient was seen resting in bed again today. He appears withdrawn, sleepy. He reports mood is ok, denies depressed mood. He slept well last night. He reports good appetite. He continues to be disheveled and malodorous, has not been showering, his room has a strong odor. He was encouraged to shower and I discussed this with staff today. At this time, patient denies any suicidal or homicidal ideation, intent or plan. Denies any auditory or visual hallucina tions. Patient has been compliant with meds, and denies side effects besides daytime sleepiness. He also received Ativan 1 mg po x 1 yesterday afternoon and again this afternoon, which likely contributes to his daytime sleepiness. Mental status exam: General Appearance: Patient appears to be stated age, malodorous Behavior: No agitated behavior. Patient is calm, withdrawn. Speech: Patient's speech is fluent and non-pressured. Mood/Affect: Mood is improving mildly, affect is congruent and constricted. Suicidality/Homicidality: Patient denies having any suicidal or homicidal ideation intent or plan. Perceptions: Patient denies any auditory or visual hallucinations. Though content/process: There is no evidence of any delusional thought content and thought process is concrete. Memory and concentration: AOX3, grossly intact for the purposes of this session Judgment and insight: Improving mildly Assessment/Plan: Continue with current diagnosis. Patient continues to meet criteria for inpatient psychiatric admission for symptom stabilization and safety. First dose of Haldol decanoate 100 mg IM q4 weeks given on 02/08/24. Decrease Haldol 5 mg TID to 5 mg BID starting today due to daytime sedation, with plan to continue to taper as needed. Decrease Ativan 1 mg Q6H PRN for anxiety/agitation to 0.5 mg Q6H PRN for anxiety, to minimize daytime sedation. Monitor for medication compliance and for any psychotropic medication side effects. Will continue to monitor ongoing response to treatment. Encouraged participation in milieu. Encouraged patient to attend to his ADLs.
[2024-02-11] MEDS: haloperidoL 5 MG TAB PO SCH (08:28)
[2024-02-11] MEDS: NYSTATIN 100,000 UNIT/GM POWD 15 GM TOPICAL SCH (12:05)
--- NOTE | 2024-02-11 21:11 | P.PN ---
Progress Note - Text Progress Note Date: 02/11/24 Interval history: Patient was seen relaxing and watching TV in the lounge today. He appears calm, cooperative and pleasant. He reports mood is good, denies depressed mood. He had difficulty falling asleep last night and was given Trazodone 50 mg QHS PRN x1 and was able to go to sleep. He reports good appetite. He has showered, changed his bed linens, washed his clothes and slippers today. At this time, patient denies any suicidal or homicidal ideation, intent or plan. Denies any auditory or visual hallucinations. Patient has been compliant with meds, and denies side effects. No PRN Ativan given today. Mental status exam: General Appearance: Patient appears to be stated age, personal hygiene is improved by still marginal Behavior: No agitated behavior. Patient is calm, cooperative, pleasant. Speech: Patient's speech is fluent and non-pressured. Mood/Affect: Mood is improving mildly, affect is congruent and constricted. Suicidality/Homicidality: Patient denies having any suicidal or homicidal ideation intent or plan. Perceptions: Patient denies any auditory or visual hallucinations. Though content/process: There is no evidence of any delusional thought content and thought process is concrete. Memory and concentration: AOX3, grossly intact for the purposes of this session Judgment and insight: Improving mildly Assessment/Plan: Continue with current diagnosis. Patient continues to meet criteria for inpatient psychiatric admission for symptom stabilization and safety. First dose of Haldol decanoate 100 mg IM q4 weeks given on 02/08/24. Continue Haldol 5 mg po BID Monitor for medication compliance and for any psychotropic medication side effects. Will continue to monitor ongoing response to treatment. Encouraged participation in milieu. Encouraged patient to attend to his ADLs.
[2024-02-12] MEDS: HALOPERIDOL DECANOATE 50 MG/ML 1 ML VIAL IM STA (11:05)
--- NOTE | 2024-02-12 12:41 | P.PN ---
Progress Note - Text Progress Note Date: 02/12/24 Interval History: Patient was seen today in his room and was agreeable to speak to automatic typewriter inspector in the office today. Patient claims that he is doing fairly well, denying any side effects at this time. He states that he slept fairly last night, He claims that he is tolerating medications fairly well. His thought process is improving, he is not responding to internal stimuli at this time. Claims that he is eating well,and patient is going to groups. Patient received RINCON on 02/07, will give an additional 50mg IM today, and probable discharge tomorrow. Patient agreeable At this time patient denies any suicidal or homicidal ideations, intent or plan. Patient is denying auditory hallucinations today, denies visual hallucinations and denies any paranoia or delusions. Patient is compliant with medications. MENTAL STATUS EXAM: General Appearance: Patient appears to be older than stated age, is alert, directable, and attempts to cooperate. Patient appears to have improving hygiene and grooming. healed cuts all over his arms/neck/face. Patient has side patten, and dressed in street clothes. Behavior: Patient is seated without any agitated behavior. improving Speech: Patient's speech is fluent and nonpressured. improving Mood/Affect: Patient reports their mood is "good " affect is congruent and constricted. Improving Suicidality/Homicidality: Patient denies having any homicidal ideation intent or plan. Denies any suicidal ideations intent or plan Perceptions: Patient denies any visual hallucinations and is denying auditory hallucinations. Though content/process: There is evidence of any delusional thought content and thought process concrete. Improving Memory and concentration: AOX3, grossly intact for the purposes of this session. Judgment and insight: Chronically poor, improving IMPRESSIONS: Schizophrenia cannabis use disorder Extrapyramidal symptoms PLAN: -Patient is admitted under voluntary status to [facility] for stabilization of psychiatric symptoms and safety. -Medications : Zoloft 200mg po daily for mood/anxiety, trazodone 50mg qhs PRN for sleep, depakote 1000mg qhs for mood stabilization/agitation, decrease Haldol 2mg BID for psychosis, last dose tomorrow, Haldol D 100mg IM given 02/07, due q28 days and next dose of Haldol D 150mg will be due at [facility] on 5/10. will give extra dose of Haldol D 50mg IM today. -Ativan and Haldol PRN for agitation/aggression -SW on board for discharge planning. Encourage patient to participate in groups to work on coping skills. will potentially discharge patient tomorrow, if no events occur overnight. fruit i farmworker to reach out to patient's parents to ensure discharge planning for tomorrow.
[2024-02-12] MEDS: LORazepam 0.5 MG TAB PO PRN (16:51)
[2024-02-13 07:39] VITALS: BP 125/74; PULSE 58; TEMP 98.2
--- NOTE | 2024-02-13 09:49 | P.DS ---
Providers Date of admission: 01/20/24 13:46 Expected date of discharge: 02/13/24 Attending physician: Pablo Joaquin MD Consults: 01/20/24 13:52 Consult Physician Routine Consulting Provider: Rosey Physician Consult Reason/Comments: H&P Do you want consulting provider notified?: Yes Primary care physician: Laxmi Keller MD - Discharge Diagnosis(es) (1) Schizophrenia Current Visit: Yes Status: Acute Priority: High (2) Cannabis use disorder Current Visit: Yes Status: Acute Priority: Medium (3) Extrapyramidal symptom Current Visit: Yes Status: Acute Priority: Medium Hospital Course: Admission HPI: Admission note was completed by account underwriter" Patient presented to the hospital on 01/19. As per EPS note, "Pt was petitioned by mother, which states, "Marin has repeadtedly stated he wants to kill himself. Saying he leana blow his head off, beat his head on floor and wall. Has cut himself all over body...". During assessment pt was polite, calm, and cooperative with this RN. Pt has cuts on face, eyelids, neck, stomach, bilateral forearms, bilateral thighs, and bilate ral feet. Only one cut on right forearm required steri strips, no sutures where placed. All other cuts are superficial. PT states that he took a cutting knife and cut with the intent to bleed. He does not want to life anymore. Admits to with plan to hang or shoot himself. He states that he would go purchase a weapon. He wants IMs to be "sedated so I can't feel and the days just pass". He feels he is a disappointment to his family and self. He states that he wanted to have someone plan to kill him as well. He recently lost his job because he threatened to kill a co-worker. Pt currently has no goals and not future oriented. He denies current HI. Denies delusions. He admits to he states that come and go of what looks like people he used to know. They do not speak to him but just "quick glimpses". 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 He states he feels he was being treated unfairly at work, and it made him angry. He states that he just "blows up" sometimes, and stressors include losing his job, and he was not asking for help. Patient has multiple superficial cuts all over his arms/neck/face. Parents noticed these cuts, and brought him into the hospital. He states he has mood swings, depression, and anxiety. Patient claims that by the cuts, he was wanting to kill himself. States he sleeps well, and his appetite is good. Patient denies any suicidal or homicidal ideations intent or plan. At this time patient denies any auditory or visual hallucinations. However, stated that he would sometimes hear his name being called at work, but no one was around. Patient denies any flight of ideas racing thoughts and increased in goal directed behavior. Patient denies using drugs, however, his UDS was positive for marijuana. Nurses and social workers have observed patient responding to internal stimuli, grabbing things in the air, when there is nothing there." Hospital course: Upon admission to the unit patient was directable and agreeable to commence treatment and signed adult voluntary form. Patient was initially bizarre, kept to himself, responding to internal stimuli however with time and treatment he eventually got along well with other patients on the unit and followed unit protocol. Patient was compliant with the medications and denied any side effects throughout hospital course. Patient was started on Zoloft increased to dose of 200 mg daily for mood/anxiety, trazodone 50 mg nightly as needed for sleep, Depakote 1000 mg nightly for mood stabilization/agitation, Haldol p.o. was at a maximum dose of 5 mg 3 times daily for psychosis, patient was agreeable to be transitioned onto Haldol D was given 100 mg IM on 02/07, second dose of 50 mg IM was given on 02/11, next dose of Haldol D will be doing q. 28 days on 03/07 at [facility].. Patient spoke of his stressors and engaged in therapy both group and individual. Patient was also seen by medical team for history and physical exam. Throughout the course of the hospitalization patient gradually improved with regards to mood, anxiety, psychosis, bizarre behaviors, sleep and returned back to their baseline level of functioning. On the day of discharge patient denied any suicidal or homicidal ideations intent or plan denied any auditory or visual hallucinations. Patient endorsed wanting to live for his health, future and family. The patient denied any access to guns or weapons. Patient denied any paranoia and did not endorse any delusions. Patient does not have a significant history of substance abuse and was counseled on abstaining from all substances including alcohol and marijuana. Patient was also counseled on the medications and need for regular compliance and was encouraged to follow-up with their outpatient appointment for mental health and also for primary care. Prior to discharge a family meeting will be arranged by dialysis social worker to answer any questions and ensure safety upon discharge. Mental status exam: General Appearance: Patient appears to be thin, has a blanco, stated age is alert, pleasant, and cooperative. Patient is in no acute distress and has improved hygiene and grooming Behavior: Patient is calmly seated without any agitated behavior. Cooperative Speech: Patient's speech is fluent and nonpressured. Mood/Affect: Patient reports their mood is "good", affect is congruent and euthymic. Suicidality/Homicidality: Patient denies having any suicidal or homicidal ideation intent or plan. Perceptions: Patient denies any auditory or visual hallucinations. Though content/process: There is no evidence of any delusional thought content and thought process is linear and goal-directed. Fairly concrete Memory and concentration: AOX3, grossly intact for the purposes of this session. Can spell "WORLD" backwards correctly. Judgment and insight: Chronically poor, however has improved with guarded prognosis Impression: Schizophrenia cannabis use disorder Extrapyramidal symptoms Plan: -Continue with discharge today as patient has improved and stabilized psychiatrically and is not currently an imminent threat to himself and/or others. Patient will remain at chronically elevated risk for harm to self and/or others due to his impulsivity and chronic/severe mental illness. -Continue medications: Zoloft 200 mg daily for mood/anxiety, trazodone 50 mg nightly as needed for sleep, Depakote 1000 mg nightly for mood stabilization/agitation, Haldol p.o. was discontinued. Patient was given Haldol D was given 100 mg IM on 02/07, second dose of 50 mg IM was given on 02/11, next dose of Haldol D will be doing q. 28 days on 03/07 at [facility]. -Patient was counseled on the need for medication compliance and appropriate follow-up at mental health and also primary care for medical issues. Patient verbalized understanding and agreed. -Social work to arrange for and conduct family meeting to ensure safety upon discharge and answer any questions/concerns. Social work also to arrange for patients follow up appointments with [facility] for psychiatric care along with follow up with primary care provider. -Patient counseled on abstaining from recreational drugs and marijuana and alcohol. Was informed/educated on the adverse effects on their physical and mental health. Patient verbally agreed and understood. -Patient was instructed to return to the hospital or seek immediate medical care if their psychiatric or medical symptoms do worsen or reoccur. Allergies Allergy/AdvReac Type Severity Reaction Status Date / Time Penicillins Allergy Anaphylaxis Verified 01/19/24 14:39 Sulfa (Sulfonamide Allergy Anaphylaxis Verified 01/19/24 14:39 Antibiotics) Laboratory Results WBC 5.8 k/uL (3.8-10.6) 01/21/24 07:26 RBC 5.19 m/uL (4.30-5.90) 01/21/24 07:26 Hgb 15.2 gm/dL (13.0-17.5) 01/21/24 07:26 Hct 47.7 % (39.0-53.0) 01/21/24 07:26 MCV 91.8 fL (80.0-100.0) 01/21/24 07:26 MCH 29.3 pg (25.0-35.0) 01/21/24 07:26 MCHC 32.0 g/dL (31.0-37.0) 01/21/24 07:26 RDW 12.9 % (11.5-15.5) 01/21/24 07:26 Plt Count 206 k/uL (150-450) 01/21/24 07:26 MPV 7.2 01/21/24 07:26 Neutrophils % 55 % 01/21/24 07:26 Lymphocytes % 28 % 01/21/24 07:26 Monocytes % 6 % 01/21/24 07:26 Eosinophils % 7 % 01/21/24 07:26 Basophils % 1 % 01/21/24 07:26 Neutrophils # 3.2 k/uL (1.3-7.7) 01/21/24 07:26 Lymphocytes # 1.6 k/uL (1.0-4.8) 01/21/24 07:26 Monocytes # 0.4 k/uL (0-1.0) 01/21/24 07:26 Eosinophils # 0.4 k/uL (0-0.7) 01/21/24 07:26 Basophils # 0.1 k/uL (0-0.2) 01/21/24 07:26 Sodium 141 mmol/L (137-145) 01/21/24 07:26 Potassium 4.2 mmol/L (3.5-5.1) 01/21/24 07:26 Chloride 104 mmol/L (98-107) 01/21/24 07: Carbon Dioxide 27 mmol/L (22-30) 01/21/24 07:26 Anion Gap 10 mmol/L 01/21/24 07:26 BUN 11 mg/dL (9-20) 01/21/24 07:26 Creatinine 0.75 mg/dL (0.66-1.25) 01/21/24 07:26 Est GFR (CKD-EPI)AfAm >90 (>60 ml/min/1.73 sqM) 01/21/24 07:26 Est GFR (CKD-EPI)NonAf >90 (>60 ml/min/1.73 sqM) 01/21/24 07:26 Glucose 94 mg/dL (74-99) 01/21/24 07:[address] Glu mg/dL 105 mg/dL 01/21/24 07:26 Hemoglobin A1c 5.3 % (<=6.0) 01/21/24 07:26 Calcium 9.5 mg/dL (8.4-10.2) 01/21/24 07: Total Bilirubin 0.8 mg/dL (0.2-1.3) 01/21/24 07:26 AST 33 U/L (17-59) 01/21/24 07:26 ALT 25 U/L (4-49) 01/21/24 07:26 Alkaline Phosphatase 77 U/L (38-126) 01/21/24 07:26 Total Protein 7.3 g/dL (6.3-8.2) 01/21/24 07:26 Albumin 4.6 g/dL (3.5-5.0) 01/21/24 07: TSH 1.110 mIU/L (0.465-4.680) 01/21/24 07:26 Urine Color Colorless 01/20/24 16:22 Urine Appearance Clear (Clear) 01/20/24 16:22 Urine pH 6.5 (5.0-8.0) 01/20/24 16:22 Ur Specific [place] 1.017 (1.001-1.035) 01/20/24 16:22 Urine Protein Negative (Negative) 01/20/24 16:22 Urine Glucose (UA) Negative (Negative) 01/20/24 16:22 Urine Ketones Negative (Negative) 01/20/24 16:22 Urine Blood Negative (Negative) 01/20/24 16:22 Urine Nitrite Negative (Negative) 01/20/24 16:22 Urine Bilirubin Negative (Negative) 01/20/24 16:22 Urine Urobilinogen <2.0 mg/dL (<2.0) 01/20/24 16:22 Ur Leukocyte Esterase Negative (Negative) 01/20/24 16:22 Urine Opiates Screen Not Detected (NotDetected) 01/19/24 17:10 Ur Oxycodone Screen Not Detected (NotDetected) 01/19/24 17:10 Urine Methadone Screen Not Detected (NotDetected) 01/19/24 17:10 Ur Barbiturates Screen Not Detected (NotDetected) 01/19/24 17:10 U Tricyclic Antidepress Not Detected (NotDetected) 01/19/24 17:10 Ur Phencyclidine Scrn Not Detected (NotDetected) 01/19/24 17:10 Ur Amphetamines Screen Not Detected (NotDetected) 01/19/24 17:10 U Methamphetamines Scrn Not Detected (NotDetected) 01/19/24 17:10 U Benzodiazepines Scrn Not Detected (NotDetected) 01/19/24 17:10 Urine Cocaine Screen Not Detected (NotDetected) 01/19/24 17:10 U Marijuana (THC) Screen Detected (NotDetected) H 01/19/24 17:10 SARS-CoV-2 (PCR) Not Detected (Not Detectd) 03/24/24 12:04 Vital Signs Temp 98.2 F 02/13/24 06:45 Pulse 58 L 02/13/24 06:45 Resp 16 02/13/24 06:45 BP 125/74 02/13/24 06:45 Pulse Ox 99 02/13/24 06:45 FiO2 Patient Condition at Discharge: Stable Plan - Discharge Summary Discharge Rx Participant: Yes New Discharge Prescriptions: New Benztropine Mesylate [Cogentin] 1 mg PO HS 30 Days #30 tab Divalproex ER [Depakote ER] 1,000 mg PO HS 30 Days #60 tab traZODone HCL [Desyrel] 50 mg PO HS PRN 30 Days #30 tab PRN Reason: Insomnia Nicotine 14Mg/24Hr Patch [Habitrol] 1 patch TRANSDERM DAILY 14 Days #14 patch Haloperidol Decanoate [Haldol D] 150 mg IM Q28D #1 each Nystatin 100,000 Unit/gm Powd [Mycostatin Powder] 1 applic TOPICAL TID 30 D ays #1 each hydrOXYzine pamoate [Vistaril] 50 mg PO DAILY PRN 30 Days #30 capsule PRN Reason: Anxiety Sertraline [Zoloft] 200 mg PO DAILY 30 Days #60 tab Discontinued OLANZapine [ZyPREXA] 2.5 mg PO HS Discharge Medication List Benztropine Mesylate [Cogentin] 1 mg PO HS 30 Days #30 tab 02/13/24 [Rx] Divalproex ER [Depakote ER] 1,000 mg PO HS 30 Days #60 tab 02/13/24 [Rx] Haloperidol Decanoate [Haldol D] 150 mg IM Q28D #1 each 02/13/24 [Rx] Nicotine 14Mg/24Hr Patch [Habitrol] 1 patch TRANSDERM DAILY 14 Days #14 patch 02/13/24 [Rx] Nystatin 100,000 Unit/gm Powd [Mycostatin Powder] 1 applic TOPICAL TID 30 Days #1 each 02/13/24 [Rx] Sertraline [Zoloft] 200 mg PO DAILY 30 Days #60 tab 02/13/24 [Rx] hydrOXYzine pamoate [Vistaril] 50 mg PO DAILY PRN 30 Days #30 capsule 02/13/24 [Rx] traZODone HCL [Desyrel] 50 mg PO HS PRN 30 Days #30 tab 02/13/24 [Rx] Follow up Appointment(s)/Referral(s): Laxmi Keller MD [Primary Care Provider] - 1-2 days Patient Instructions/Handouts: Schizophrenia (DC), Cannabis Abuse (DC) Activity/Diet/Wound Care/Special Instructions: Avoid the use of street drugs and alcohol. Take all medications as prescribed. When you are in need of refills on your medications, please contact your medical provider and/or outpatient psychiatrist/provider to have this done. Please go to your scheduled outpatient appointment for aftercare treatment. If symptoms return or become worse, call the crisis line at and/or go to the nearest emergency room for evaluation. National Suicide Hotline 988. Discharge Disposition: HOME SELF-CARE
== END 2024-02-13 13:32 | disposition home or self-care (01) | DRG 750 ==
LOC: EC 14:25 → 3MHU 01-20 13:46
PROVIDERS: ADMIT Psychiatry & Neurology Psychiatry; ATTEND Psychiatry & Neurology Psychiatry
DX: F20.9 Schizophrenia, unspecified (principal); F06.4 Anxiety disorder due to known physiological condition; F12.10 Cannabis abuse, uncomplicated; G25.9 Extrapyramidal and movement disorder, unspecified; Z71.51 Drug abuse counseling and surveillance of drug abuser; Z71.89 Other specified counseling; F31.9 Bipolar disorder, unspecified; R45.850 Homicidal ideations; R45.851 Suicidal ideations; S51.811A Laceration without foreign body of right forearm, initial encounter; Z56.0 Unemployment, unspecified; Z79.899 Other long term (current) drug therapy; R45.1 Restlessness and agitation; Z28.310 Unvaccinated for COVID-19; Z28.21 Immunization not carried out because of patient refusal; Z71.3 Dietary counseling and surveillance; Z88.0 Allergy status to penicillin; Z88.2 Allergy status to sulfonamides
CPT/HCPCS: 80053; 80306; 81003; 82075; 83036; 84443; 85025; 87635; 90471; 90715; 93005; 96372; 99285